=== PATIENT | female | born 1990 | race Two or more races ===

== ENCOUNTER → 2025-03-03 | Outpatient (CLI) | payer BC, SELFPAY ==
--- NOTE | 2025-03-03 09:09 | XR_ITS ---
Examination: Abdomen sonogram, complete Date and time of exam: March 03, 2025, 0924 hours INDICATIONS: Right upper abdominal pain beginning one week ago. Technique: Multiple real-time grayscale transabdominal sonographic images of the abdomen have been obtained. Findings: 3 mm gallstone Normal gallbladder wall Normal common bile duct 0.3 cm Pancreatic head 3.0 cm Aorta not enlarged. Liver 17.5 cm fatty infiltration Normal hepatopedal portal venous flow Patent IVC Right kidney 11.0 cm cortex 1.5 cm Left kidney 10.9 cm cortex 2.1 cm Mild renal scar formation Spleen 9.0 cm IMPRESSION: Cholelithiasis, negative for cholecystitis
== END | disposition home or self-care (01) ==
PROVIDERS: PCP Family Medicine; Referring Provider Nurse Practitioner Family; Visit Provider Nurse Practitioner Family
DX: K80.20 Calculus of gallbladder without cholecystitis without obstruction (principal)
CPT/HCPCS: 76700